=== PATIENT | female | born 1955 | race Caucasian/White ===

== ENCOUNTER 2024-05-20 03:26 | Emergency (ER) | payer OTHER, SELFPAY ==
[2024-05-20 03:30] VITALS: BP 118/74
[2024-05-20 04:12] VITALS: BMI 24.2
[2024-05-20 04:20] VITALS: BP 104/66
[2024-05-20 04:27] LABS: Urine Albumin Trace (Neg - Trace); Urine Bilirubin 1+ (Negative); Urine Character Clear (Clear); Urine Color Yellow; Urine Glucose Negative (Negative); Urine Ketone Negative (Negative); Urine Leukocyte 1+ (Negative); Urine Nitrite Negative (Negative); Urine Occult Blood 1+ (Negative); Urine Specific Gravity 1.015 (<1.030); Urine Urobilinogen 3+ (Neg - 1+); Urine pH 6.5 (5.0-9.0)
[2024-05-20 04:28] LABS: % Basophils 0.9 % (0-2); % Eosinophils 2.3 % (0-6); % Immature Granulocytes 0.3 % (0-0.5); % Lymphocytes 22.8 % (20.5-51.1); % Monocytes 10.7 % (1.7-9.3); Absolute Eosinophils 0.1 10^3/uL (0-0.7); Absolute Lymphocytes 0.8 10^3/uL (1.2-3.4); Absolute Monocytes 0.4 10^3/uL (0.1-0.6); Absolute Neutrophils 2.2 10^3/uL (1.4-6.5); Hematocrit 28.4 % (37.0-47.0); Hemoglobin 9.4 g/dL (12.0-16.0); Mean Corp Hgb Conc. 33.1 g/dL (33.0-37.0); Mean Corpuscular Hgb 35.1 pg (27.0-31.0); Nucleated Red Blood Cells % 0 %; Platelet Count 112 10^3/uL (130-400); Red Blood Cell Count 2.68 10^6/uL (4.20-5.40); Red Cell Dist. Width 12.9 % (11.5-14.5); White Blood Cell Count 3.5 10^3/uL (4.8-10.8)
[2024-05-20 04:46] LABS: ALT (SGPT) 72 U/L (0-35); AST (SGOT) 75 U/L (14-36); Albumin 4.5 g/dl (3.5-5.0); Alkaline Phosphatase 115 U/L (38-126); Blood Urea Nitrogen 28 mg/dl (7-17); Calcium 9.1 mg/dl (8.4-10.2); Carbon Dioxide 29 mmol/L (22-30); Chloride 103 mmol/L (98-107); Estimated Creatinine Clearance 86 ml/min; Glucose 104 mg/dl (70-99); Potassium 3.6 mmol/L (3.5-5.1); Sodium 138 mmol/L (135-145); Total Bilirubin 3.1 mg/dl (0.2-1.3); Total Protein 6.6 g/dl (6.3-8.2); eGFR > 60.00
[2024-05-20 04:53] LABS: Urine Red Blood Cell 0-2 /HPF (0-2)
[2024-05-20 04:54] LABS: Urine Bacteria Moderate (Negative)
--- NOTE | 2024-05-20 04:58 | ED.GENMED ---
History of Present Illness
General
Chief Complaint: Flank Pain
Source: patient
Exam Limitations: none
Time Seen by Provider: 05/20/24 04:35
Nursing documentation reviewed up to this point in time: agreed with
History of Present Illness
History of Present Illness:
Pleasant 68-year-old female presents to the emergency department with left flank pain with nausea that began approximate 1 hour prior to arrival. Patient does have a history of kidney stones and follows with urology. She has needed surgery in the
past. Denies fever, chills, chest pain or shortness of breath.
Past History
Past History
ED Past Medical History: HTN and Other
ED Past Surgical History: Other
Social History
Tobacco: Former smoker
Alcohol: Occasional
Drug: None
Personal:
Living: with family
Review of Systems
Review of Systems
Allergies reviewed?: Yes
All Other Systems: ROS reviewed and negative except as documented in HPI and ROS
Constitutional: Reports no symptoms
EENT: Reports no symptoms
Respiratory: Reports no symptoms
Cardiac: Reports no symptoms
ABD/GI: Reports no symptoms
: Reports flank pain; Denies dysuria, incontinence, difficulty voiding, urgency or discharge
Musculoskeletal: Reports no symptoms
Skin: Reports no symptoms
Neurological: Reports no symptoms
Endocrine: Reports no symptoms
Hematologic/Lymphatic: Reports no symptoms
Psychiatric: Reports no symptoms
Phy Exam
General Physical Exam
General Presentation: well appearing and no apparent distress
General Skin: warm and dry
General Habitus: normal
General Mental: alert
General Hydration: appears well hydrated
ENT Exam
ENT Exam: EOMI, pharynx normal, neck supple and normocephalic
Eye Exam
Eye Exam: PERRL, cornea clear and conjunctiva normal
Cardiovascular Exam
Cardiovascular Exam: regular rate/rhythm, no edema, no murmur and normal peripheral pulses
Pulmonary Exam
Pulmonary Exam: lungs clear, no respiratory distress, no rales, no crackles, no rhonchi, no stridor, no wheezing and no cough
Gastrointestinal Exam
Gastrointestinal Exam: normal bowel sounds, non tender, soft, no organomegaly, no pulsatile mass and non distended
Neurological Exam
Neurological Exam: alert, oriented x3, no motor deficits and speech normal
Musculoskeletal Exam
Musculoskeletal Exam: full ROM, no edema and other (No back tenderness to palpation)
Skin Exam
Skin Exam: normal color, warm/dry, no rash and no petechia
Psychiatric Exam
Psychiatric Exam: normal mood/affect
Course
Orders/Labs/Results
Orders:
Orders
05/20/24 03:40
CT Abd/pel Without Iv Or Oral Urgent
Comment:
Reason For Exam: flank pain
05/20/24 04:20
Complete Blood Count/With Diff Urgent
Comprehensive Metabolic Panel Urgent
Urinalysis Reflex To Culture Urgent
Date Specimen was Collected: 05/20/24
Time Specimen was Collected: 04:15
Urine Microscopic Reflex Cult Urgent
Urine Culture Urgent
IRISH Source: U
Specimen Description:
Date Specimen was Collected: 05/20/24
Time Specimen was Collected: 04:15
05/20/24 05:06
Fosfomycin [Monurol] 3 gm PO ONCE ONE
Abnormal Lab Results
05/20/24
04:20
WBC 3.5 L 10^3/uL
(4.8-10.8)
RBC 2.68 L 10^6/uL
(4.20-5.40)
Hgb 9.4 L g/dL
(12.0-16.0)
Hct 28.4 L %
(37.0-47.0)
MCV 106.0 H fL
(81.0-99.0)
MCH 35.1 H pg
(27.0-31.0)
Plt Count 112 L 10^3/uL
(130-400)
MPV 11.0 H fL
(7.4-10.4)
Absolute Lymphs (auto) 0.8 L 10^3/uL
(1.2-3.4)
Monocytes % 10.7 H %
(1.7-9.3)
BUN 28 H mg/dl
(7-17)
Glucose 104 H mg/dl
(70-99)
Total Bilirubin 3.1 H mg/dl
(0.2-1.3)
AST 75 H U/L
(14-36)
ALT 72 H U/L
(0-35)
Ur Occult Blood Reflex 1+ A
(Negative)
Urine Bilirubin 1+ A
(Negative)
Urine Urobilinogen 3+ A
(Neg - 1+)
Leukocyte Esterase Rfl 1+ A
(Negative)
Urine Bacteria (Reflex) Moderate A
(Negative)
05/20/24 04:20
05/20/24 04:20
Vital Signs
Initial and Last Documented VS:
Initial Vital Signs
Temp Pulse Resp BP Pulse Ox
98.1 F 74 20 118/74 92
05/20/24 03:30 05/20/24 03:30 05/20/24 03:30 05/20/24 03:30 05/20/24 03:30
Last Documented Vital Signs
Temp Pulse Resp BP Pulse Ox
98.1 F 74 20 104/66 92
05/20/24 03:30 05/20/24 03:30 05/20/24 03:30 05/20/24 04:20 05/20/24 04:20
*Critical Care Note
Total Time (30-74mins, 75-104mins- exclusive of procedures): Not Applicable
Update Note
Update Note:
CT abdomen and pelvis without IV contrast
IMPRESSION:
Calcified 3 mm stone lodged at the left UVJ with mild hydroureter. No definite hydronephrosis. Correlate with urinalysis and patient's symptoms.
Splenomegaly. No cholecystitis or pancreatitis. Appendix normal. No bowel obstruction or diverticulitis.
Finalized at 4:15 AM EST
ED Attending Note
-
Portions of this chart may have been created with voice recognition software.� Occasional wrong word or��sound alike� substitutions may have occurred due to the inherent limitations of voice recognition software.
Discharge Plan
Departure
Patient Disposition: Home (Routine Discharge)
Date of Disposition: 05/20/24
Time of Disposition: 05:19
Patient with high blood pressure during this ER visit?: Yes
Discharge Problem:
Kidney stone on left side, Acute UTI
Instructions: Kidney Stones (DC), How to Strain Your Urine, BLOOD PRESSURE, Narcotic Pain Medication
Prescriptions:
New
oxycodone-acetaminophen [Percocet] 5-325 mg Tablet
1 tab PO Q6HPRN PRN (Reason: pain) Qty: 10 0RF
diclofenac sodium 75 mg tablet,delayed release (DR/EC)
75 mg PO BID Qty: 10 0RF
No Action
aspirin [Aspir-Low] 81 MG tablet,delayed release (DR/EC)
81 mg PO DAILY
niacinamide 500 MG tablet
500 mg PO DAILY
vitamin E 400 UNIT capsule
800 unit PO DAILY
valsartan-hydrochlorothiazide 1 EACH tablet
1 ea PO DAILY
hydrocodone-acetaminophen 1 TABLET tablet
1 tab PO Q4HPRN PRN (Reason: severe pain) Qty: 10 0RF
prednisone 10 MG tablet
10 mg PO .TAPER Qty: 30 0RF
Rx Instructions:
Take 40mg daily x3days, 30mg daily x3days,
20mg daily x3days, 10mg daily x3days.
Referrals:
Elise Marc CRNP [Specified Professional Personl] -
Activity Restrictions/Additional Instructions:
It was a pleasure meeting you and taking part in your care. We hope for your continued healing and wellness.
Please read discharge instructions in their entirety. However, they are for general education and may not describe your exact diagnosis at discharge. Information on your ER visit and medical conditions were discussed with you along with appropriate
follow up information...
If indicated, please take your medications as instructed and indicated on discharge paperwork.
Please schedule a follow up appointment as directed. Call to schedule an appointment
Please return to the emergency department with ANY change in, persisting, or worsening of symptoms. If any of your symptoms do not improve, or persist, or become more severe within 6-12 hours, please return to the emergency department for further
care.
Please return to the emergency department if you develop a headache, neck pain/stiffness, fever greater than 100.4F, chest pain, shortness of breath, persistent nausea, vomiting, slurred speech, difficulty walking, numbness/tingling, weakness, signs
of infection or any other symptoms that are worrisome to you.
If you have any questions or concerns please do not hesitate to call the Hospital at or E-mail me directly at [email or web address]
Interventions
Interventions:
*Risk Screen - Suicide Last Done: 05/20/24 03:30
*General Assessment Last Done: 05/20/24 03:30
*Neglect/Abuse Screening Last Done: 05/20/24 03:30
ED- Fall Risk Assessment Last Done: 05/20/24 03:30
*ED COVID-19 Vaccine History Last Done: 05/20/24 03:30
*Nursing Disposition Last Done: 05/20/24 05:30
ER-Sphbfq-Magfgjntwy Assessment Last Done: 05/20/24 04:12
ED-Female Genitourinary Assessment Last Done: 05/20/24 04:12
Discharge Date and Time
Discharge Date/Time: 05/20/24 05:36
Print Language: GUAMANIAN
[2024-05-20] MEDS: MONUROL 3 GM PO (05:25)
== END 2024-05-20 05:36 | disposition home or self-care (01) ==
LOC: EMR 03:26
PROVIDERS: EMERGENCY PHYSICIAN Student in an Organized Health Care Education/Training Program; FAMILY PHYSICIAN Family Medicine
DX: N20.1 Calculus of ureter (principal); N13.4 Hydroureter; N39.0 Urinary tract infection, site not specified; I10 Essential (primary) hypertension; Z87.891 Personal history of nicotine dependence
CPT/HCPCS: 99284; 74176; 80053; 81003; 81015; 85025; 87086

== ENCOUNTER 2024-05-22 14:09 | Emergency (ER) | payer OTHER, SELFPAY ==
[2024-05-22 14:13] VITALS: BP 100/68
--- NOTE | 2024-05-22 15:11 | ED.GENMED ---
History of Present Illness
General
Chief Complaint: Flank Pain
Source: patient
Exam Limitations: none
Time Seen by Provider: 05/22/24 15:07
Nursing documentation reviewed up to this point in time: agreed with
History of Present Illness
History of Present Illness:
Patient to ED with complaint of left flank pain. She was seen in ED on thursday and diagnosed with kidney stone. SHe feels that that stone passed. States she was pain free after discharged until approx 2 hours ago when pain returned. Reports severe
left flank pain, n/v. Denies fever/chills. Brought to ED by spouse for eval.
Past History
Past History
ED Past Medical History: HTN and Other
ED Past Surgical History: Other
Social History
Tobacco: Former smoker
Alcohol: Occasional
Drug: None
Personal:
Living: with family
Review of Systems
Review of Systems
Allergies reviewed?: Yes
All Other Systems: ROS reviewed and negative except as documented in HPI and ROS
Constitutional: Reports no symptoms
EENT: Reports no symptoms
Respiratory: Reports no symptoms
Cardiac: Reports no symptoms
ABD/GI: Reports nausea and vomiting
: Reports flank pain (severe left flank pain)
Musculoskeletal: Reports no symptoms
Skin: Reports no symptoms
Neurological: Reports no symptoms
Psychiatric: Reports no symptoms
Phy Exam
General Physical Exam
General Presentation: severe distress
General age: appears stated age
General Skin: warm and dry
General Habitus: normal
General Mental: alert
Cardiovascular Exam
Cardiovascular Exam: regular rate/rhythm
Gastrointestinal Exam
Gastrointestinal Exam: soft, no organomegaly, non distended and other (severe left flank pain, n/v)
Musculoskeletal Exam
Musculoskeletal Exam: neuro vasc intact
Skin Exam
Skin Exam: normal color, warm/dry and no rash
Psychiatric Exam
Psychiatric Exam: normal mood/affect
Course
Orders/Labs/Results
Orders:
Orders
05/22/24 15:10
HYDROmorphone [Dilaudid] 1 mg IV NOW STA
Ketorolac [Toradol] 30 mg .ROUTE .STK-MED ONE
Ondansetron Injectable [Zofran] 4 mg .ROUTE .STK-MED ONE
Ondansetron Injectable [Zofran] 4 mg IV NOW STA
05/22/24 15:11
CT Abd/pel Without Iv Or Oral Urgent
Comment:
Reason For Exam: left flank pain
HYDROmorphone [Dilaudid] 1 mg .ROUTE .STK-MED ONE
05/22/24 15:17
Complete Blood Count/With Diff Urgent
Comprehensive Metabolic Panel Urgent
05/22/24 16:20
0.9% Sodium Chloride 1000 ml [Nss] 1,000 ml IV BOLUS
05/22/24 16:45
Urinalysis Reflex To Culture Urgent
Date Specimen was Collected: 05/22/24
Time Specimen was Collected: 16:44
Urine Microscopic Reflex Cult Urgent
05/22/24 17:36
HYDROmorphone [Dilaudid] 0.5 mg IV NOW STA
Tamsulosin [Flomax] 0.4 mg PO NOW STA
Abnormal Lab Results
05/22/24 05/22/24
15:17 16:45
RBC 2.89 L 10^6/uL
(4.20-5.40)
Hgb 10.2 L g/dL
(12.0-16.0)
Hct 30.3 L %
(37.0-47.0)
MCV 104.8 H fL
(81.0-99.0)
MCH 35.3 H pg
(27.0-31.0)
MPV 11.1 H fL
(7.4-10.4)
Absolute Neuts (auto) 6.6 H 10^3/uL
(1.4-6.5)
Absolute Lymphs (auto) 0.8 L 10^3/uL
(1.2-3.4)
Neutrophils % 82.9 H %
(42.2-75.2)
Lymphocytes % 10.1 L %
(20.5-51.1)
BUN 24 H mg/dl
(7-17)
Glucose 121 H mg/dl
(70-99)
Total Bilirubin 4.0 H mg/dl
(0.2-1.3)
AST 71 H U/L
(14-36)
ALT 101 H U/L
(0-35)
Alkaline Phosphatase 130 H U/L
(38-126)
Urine Ketones 1+ A
(Negative)
Ur Occult Blood Reflex 1+ A
(Negative)
Urine Bilirubin 1+ A
(Negative)
Urine RBC 3-6 A /HPF
(0-2)
Urine Bacteria (Reflex) Few A
(Negative)
05/22/24 15:17
05/22/24 15:17
Vital Signs
Initial and Last Documented VS:
Initial Vital Signs
Pulse Resp BP Pulse Ox
70 18 100/68 95
05/22/24 14:13 05/22/24 14:13 05/22/24 14:13 05/22/24 14:13
Last Documented Vital Signs
Pulse Resp BP Pulse Ox
70 18 100/68 95
05/22/24 14:13 05/22/24 14:13 05/22/24 14:13 05/22/24 14:13
*Radiology
Radiology exam reviewed: radiology read reviewed
*Pulse Oximetry
Patient hypoxic: no
*Critical Care Note
Total Time (30-74mins, 75-104mins- exclusive of procedures): Not Applicable
Update Note
Update Note:
Patient to EDf with complaint of left flank pain. SHe was here thursday with same but pain resolved after ED visit. Painfree until this afternoon. Given IVF and pain medications in ED and is much more comfortable. CT shows 1.5mm stone at UVJ, non
obstructing with mild hydro. 3mm stone seen on thursday has passed. UA neg for UTI. WIll place on flomax daily. She will continue pain meds at home, follow up with urology. SHe was given instructions on s/s to return to ED and she is agreeable to
plan.
ED Attending Note
-
Portions of this chart may have been created with voice recognition software.� Occasional wrong word or��sound alike� substitutions may have occurred due to the inherent limitations of voice recognition software.
Discharge Plan
Departure
Patient Disposition: Home (Routine Discharge)
Date of Disposition: 05/22/24
Time of Disposition: 17:57
Patient with high blood pressure during this ER visit?: No
Condition: Good
Covid-19: Not Applicable
Discharge Problem:
Kidney stones
Instructions: Kidney Stones (DC)
Prescriptions:
New
tamsulosin [Flomax] 0.4 mg capsule
0.4 mg PO DAILY Qty: 14 0RF
ondansetron 4 mg tablet,disintegrating
4 mg PO Q8H PRN (Reason: nausea and vomiting) 4 Days Qty: 12 0RF
No Action
aspirin [Aspir-Low] 81 MG tablet,delayed release (DR/EC)
81 mg PO DAILY
niacinamide 500 MG tablet
500 mg PO DAILY
vitamin E 400 UNIT capsule
800 unit PO DAILY
valsartan-hydrochlorothiazide 1 EACH tablet
1 ea PO DAILY
hydrocodone-acetaminophen 1 TABLET tablet
1 tab PO Q4HPRN PRN (Reason: severe pain) Qty: 10 0RF
prednisone 10 MG tablet
10 mg PO .TAPER Qty: 30 0RF
Rx Instructions:
Take 40mg daily x3days, 30mg daily x3days,
20mg daily x3days, 10mg daily x3days.
oxycodone-acetaminophen [Percocet] 5-325 mg Tablet
1 tab PO Q6HPRN PRN (Reason: pain) Qty: 10 0RF
diclofenac sodium 75 mg tablet,delayed release (DR/EC)
75 mg PO BID Qty: 10 0RF
Referrals:
Dayday Bunn MD [Family Provider] -
Hayden Gleason MD [Active] - Call in 1-3 days for appt
Activity Restrictions/Additional Instructions:
Continue Percocet 1-2 tablets every 4-6 hours as needed for pain
Interventions
Interventions:
*Risk Screen - Suicide Last Done: 05/22/24 14:13
*General Assessment Last Done: 05/22/24 14:13
*Neglect/Abuse Screening Last Done: 05/22/24 14:13
ED- Fall Risk Assessment Last Done: 05/22/24 15:19
*ED COVID-19 Vaccine History Last Done: 05/22/24 14:13
[place]-Hcmqrb-Sgtituuuyv Assessment Last Done: 05/22/24 15:19
ED-Female Genitourinary Assessment Last Done: 05/22/24 15:19
Discharge Date and Time
Print Language: PERSIAN
[2024-05-22] MEDS: DILAUDID 1 MG IV (15:16)
[2024-05-22] MEDS: ZOFRAN 4 MG IV (15:16)
[2024-05-22 15:20] VITALS: BMI 24.2
[2024-05-22 15:30] LABS: % Basophils 0.6 % (0-2); % Eosinophils 0.5 % (0-6); % Immature Granulocytes 0.5 % (0-0.5); % Lymphocytes 10.1 % (20.5-51.1); % Monocytes 5.4 % (1.7-9.3); % Neutrophils 82.9 % (42.2-75.2); Absolute Basophils 0.1 10^3/uL (0-0.2); Absolute Lymphocytes 0.8 10^3/uL (1.2-3.4); Absolute Monocytes 0.4 10^3/uL (0.1-0.6); Absolute Neutrophils 6.6 10^3/uL (1.4-6.5); Hematocrit 30.3 % (37.0-47.0); Hemoglobin 10.2 g/dL (12.0-16.0); Mean Corp Hgb Conc. 33.7 g/dL (33.0-37.0); Mean Corpuscular Hgb 35.3 pg (27.0-31.0); Mean Corpuscular Volume 104.8 fL (81.0-99.0); Mean Platelet Volume 11.1 fL (7.4-10.4); Nucleated Red Blood Cells % 0 %; Platelet Count 143 10^3/uL (130-400); Red Blood Cell Count 2.89 10^6/uL (4.20-5.40); Red Cell Dist. Width 12.8 % (11.5-14.5); White Blood Cell Count 7.9 10^3/uL (4.8-10.8)
[2024-05-22 15:41] LABS: ALT (SGPT) 101 U/L (0-35); AST (SGOT) 71 U/L (14-36); Albumin 4.8 g/dl (3.5-5.0); Alkaline Phosphatase 130 U/L (38-126); Blood Urea Nitrogen 24 mg/dl (7-17); Calcium 9.3 mg/dl (8.4-10.2); Carbon Dioxide 26 mmol/L (22-30); Chloride 100 mmol/L (98-107); Estimated Creatinine Clearance 65 ml/min; Glucose 121 mg/dl (70-99); Potassium 3.6 mmol/L (3.5-5.1); Sodium 135 mmol/L (135-145); eGFR > 60.00
[2024-05-22] MEDS: NSS 1000 IV (16:40)
[2024-05-22 16:55] LABS: Urine Albumin Negative (Neg - Trace); Urine Bilirubin 1+ (Negative); Urine Character Clear (Clear); Urine Color Yellow; Urine Glucose Negative (Negative); Urine Ketone 1+ (Negative); Urine Leukocyte Negative (Negative); Urine Nitrite Negative (Negative); Urine Occult Blood 1+ (Negative); Urine Urobilinogen Negative (Neg - 1+)
[2024-05-22 17:38] LABS: Urine White Cell 0-2 /HPF (0-5)
[2024-05-22 17:39] LABS: Urine Bacteria Few (Negative)
[2024-05-22] MEDS: FLOMAX 0.4 MG PO (17:45)
[2024-05-22] MEDS: DILAUDID 0.5 MG IV ×2 (17:45→18:17)
== END 2024-05-22 18:37 | disposition home or self-care (01) ==
LOC: EMR 14:09
PROVIDERS: Nurse Practitioner; EMERGENCY PHYSICIAN Emergency Medicine; FAMILY PHYSICIAN Family Medicine
DX: N13.2 Hydronephrosis with renal and ureteral calculous obstruction (principal); I10 Essential (primary) hypertension; Z87.891 Personal history of nicotine dependence
CPT/HCPCS: 96374; 96375; 96376; 96361; 99284; 74176; 80053; 81003; 81015; 85025